=== PATIENT | female | born 1960 | race Caucasian/White ===

== ENCOUNTER 2017-10-16 19:01 | Emergency (ER) | payer OTHER ==
[~2017-10-16] VITALS: Ht 162.6 cm; Wt 90.7 kg
[2017-10-16 19:23] VITALS: BP 143/101
[2017-10-16] MEDS ORDERED: cefTRIAXone SOD 1,000 MG VL ONE (20:51)
[2017-10-16] MEDS ORDERED: cefTRIAXone SOD 1,000 MG VL IM ONE (21:00)
== END 2017-10-16 21:14 | disposition home or self-care (01) ==
LOC: ER 19:01
DX: K02.9 Dental caries, unspecified (principal); L08.9 Local infection of the skin and subcutaneous tissue, unspecified; K08.409 Partial loss of teeth, unspecified cause, unspecified class
CPT/HCPCS: 96372; 99283; J0696